=== PATIENT | female | born 1965 | race Caucasian/White ===

== ENCOUNTER → 2024-10-23 11:41 | Outpatient (REF) | payer OTHER, SELFPAY ==
[2024-10-23 16:36] LABS: ALT (SGPT) 24 U/L (0-35); AST (SGOT) 25 U/L (14-36); Albumin 4.8 g/dl (3.5-5.0); Alkaline Phosphatase 52 U/L (38-126); Blood Urea Nitrogen 7 mg/dl (7-17); Calcium 9.6 mg/dl (8.4-10.2); Carbon Dioxide 29 mmol/L (22-30); Chloride 96 mmol/L (98-107); Glucose 100 mg/dl (70-99); Potassium 4.4 mmol/L (3.5-5.1); Sodium 136 mmol/L (135-145); Total Bilirubin 0.9 mg/dl (0.2-1.3); Total Protein 7.1 g/dl (6.3-8.2); eGFR > 60.00
== END ==
LOC: HWLAB 11:41
PROVIDERS: ATTENDING PHYSICIAN Family Medicine
DX: Z13.9 Encounter for screening, unspecified (principal)
CPT/HCPCS: 36415; 80053

== ENCOUNTER → 2024-10-24 10:08 | Outpatient (REF) | payer OTHER, SELFPAY | LOC: MRI 10:08 | PROVIDERS: ATTENDING PHYSICIAN Family Medicine | DX: N28.89 Other specified disorders of kidney and ureter (principal) | CPT/HCPCS: 74183; A9575 ==